=== PATIENT | male | born 1950 | race Caucasian/White ===

== ENCOUNTER 2023-03-29 09:48 | Inpatient (IN) | payer MEDICARE, BC ==
[2023-03-29] VITALS (15 sets, daily range): BP systolic 92–157; BP diastolic 51–98
[~2023-03-29] VITALS: Ht 185.4 cm; Wt 133.2 kg
[2023-03-29] MEDS ORDERED: XARELTO20 MG PO (10:30)
[2023-03-29] MEDS ORDERED: IPRATROPIUM-Albuterol 0.5MG-2.5MG/3 ML NEB ONE (11:05)
[2023-03-29] MEDS ORDERED: methylPREDNISolone SODIUM SUCC 125 MG/2 ML SDV IV ONE (11:10)
[2023-03-29 11:35] LABS: BASO% 0.3 % (0-3); EOS% 0.1 % (0-8); HEMATOCRIT 45.5 % (39.0-50.0); HEMOGLOBIN 14.2 g/dl (14.0-18.0); IMMATURE GRANULOCYTES 0.3 % (0.0-5.0); LYMPH% 3.2 % (15-41); MEAN CELL VOLUME 86.3 fL CALC (80.0-100.0); MEAN CORPUSCULAR HGB 26.9 pG CALC (26.0-32.0); MEAN CORPUSCULAR HGB CONC 31.2 g/dL CAL (32.0-36.0); MONO% 5.8 % (2-13); NEUT# 16.02 thou/uL (1.82-7.42); NEUT% 90.3 % (42-76); RED BLOOD COUNT 5.27 mill/uL (4.70-6.10); RED CELL DISTRI WIDTH 17.1 % (11.5-15.5)
[2023-03-29 11:54] LABS: INTERNATIONAL NORMALIZED RATIO 1.5 RATIO (0.7-1.3); PROTHROMBIN TIME 13.8 SECONDS (9.0-12.5)
[2023-03-29 11:59] LABS: ALBUMIN 4.4 g/dL (3.2-5.0); ALKALINE PHOSPHATASE 83 u/l (38-126); ANION GAP 12 (6-22 (CALC)); BILIRUBIN, TOTAL 1.7 mg/dL (0.2-1.3); BUN 15 mg/dL (8-23); BUN/CREATININE RATIO 13 (12-20 (CALC)); CARBON DIOXIDE 27 mmol/l (22-30); CHLORIDE 104 mmol/l (95-108); CREATININE 1.1 mg/dL (0.7-1.3); GFR FOR AFR.AMER. > 60 ML/MIN (>=60 (CALC)); GFR OTHER RACES > 60 ML/MIN (>=60 (CALC)); POTASSIUM 5.1 mmol/l (3.5-5.1); SGOT/AST 28 u/l (19-48); SODIUM 138 mmol/l (137-146); TOTAL PROTEIN 7.4 g/dL (6.3-8.2)
[2023-03-29] MEDS ORDERED: ACETAMINOPHEN 325 MG/TAB PO ONE (12:05)
[2023-03-29] MEDS ORDERED: ACETAMINOPHEN 325 MG/TAB PO PRN (13:55)
[2023-03-29] MEDS ORDERED: MAGNESIUM HYDROXIDE 30 ML UDC PO PRN (13:55)
[2023-03-29] MEDS ORDERED: IPRATROPIUM-Albuterol 0.5MG-2.5MG/3 ML NEB PRN (14:00)
[2023-03-29] MEDS ORDERED: FUROSEMIDE 40 MG/4 ML SDV IV SCH (15:30)
[2023-03-29] MEDS ORDERED: RIVAROXABAN 10 MG TAB PO SCH (17:30)
[2023-03-29] MEDS ORDERED: LIPITOR80 M1 PO (20:28)
[2023-03-29] MEDS ORDERED: DILTIAZEM HYDR300 MG PO (20:30)
[2023-03-29] MEDS ORDERED: TOPROL XL200 M1 PO (20:31)
[2023-03-29] MEDS ORDERED: DESYREL50 MG PO (20:32)
[2023-03-29] MEDS ORDERED: EZETIMIBE10 MG PO (20:33)
[2023-03-29] MEDS ORDERED: VENTOLIN HFA108 MCG PO (20:36)
[2023-03-29] MEDS ORDERED: ADVAIR DISK1 INH (20:39)
[2023-03-29] MEDS ORDERED: methylPREDNISolone Sod Succ 40 MG/ML SDV IV SCH (21:00)
[2023-03-29] MEDS ORDERED: DILTIAZEM PO SCH (22:27)
[2023-03-29] MEDS ORDERED: METOPROLOL SUCCINATE 100 MG/TAB PO SCH (22:27)
[2023-03-29] MEDS ORDERED: FLUTICASONE/SALMETEROL 250 MCG/50 MCG PER DOSE INH IN SCH (22:55)
[2023-03-30] MEDS ORDERED: METOPROLOL SUCCINATE 100 MG/TAB PO SCH
[2023-03-30 00:12] VITALS: BP 130/74
[2023-03-30 03:27] VITALS: BP 121/64
[2023-03-30] MEDS ORDERED: FUROSEMIDE 40 MG/4 ML SDV IV SCH ×2 (06:00→22:00)
[2023-03-30 07:15] VITALS: BP 116/66
[2023-03-30 09:54] LABS: BASO% 0.1 % (0-3); HEMATOCRIT 44.8 % (39.0-50.0); HEMOGLOBIN 14.3 g/dl (14.0-18.0); IMMATURE GRANULOCYTES 0.2 % (0.0-5.0); LYMPH% 3.5 % (15-41); MEAN CELL VOLUME 85.2 fL CALC (80.0-100.0); MEAN CORPUSCULAR HGB 27.2 pG CALC (26.0-32.0); MEAN CORPUSCULAR HGB CONC 31.9 g/dL CAL (32.0-36.0); MONO% 3.9 % (2-13); NEUT# 16.41 thou/uL (1.82-7.42); NEUT% 92.3 % (42-76); RED BLOOD COUNT 5.26 mill/uL (4.70-6.10); RED CELL DISTRI WIDTH 17.3 % (11.5-15.5)
[2023-03-30 10:10] LABS: ALBUMIN 4.3 g/dL (3.2-5.0); ALKALINE PHOSPHATASE 63 u/l (38-126); ANION GAP 16 (6-22 (CALC)); BILIRUBIN, TOTAL 1.4 mg/dL (0.2-1.3); BUN 29 mg/dL (8-23); BUN/CREATININE RATIO 23 (12-20 (CALC)); CARBON DIOXIDE 25 mmol/l (22-30); CHLORIDE 101 mmol/l (95-108); CREATININE 1.3 mg/dL (0.7-1.3); GFR FOR AFR.AMER. > 60 ML/MIN (>=60 (CALC)); GFR OTHER RACES 54 ML/MIN (>=60 (CALC)); MAGNESIUM 1.8 mg/dL (1.6-2.3); POTASSIUM 4.5 mmol/l (3.5-5.1); SGOT/AST 31 u/l (19-48); SODIUM 138 mmol/l (137-146); TOTAL PROTEIN 7.2 g/dL (6.3-8.2)
[2023-03-30 11:00] VITALS: BP 115/67
[2023-03-30 15:15] VITALS: BP 113/66
[2023-03-30] MEDS ORDERED: DIGOXIN 0.5 MG/2 ML AMP IV ONE (17:40)
[2023-03-30 20:11] VITALS: BP 137/73
[2023-03-30] MEDS ORDERED: ATORVASTATIN CALCIUM 40 MG/TAB PO SCH (21:00)
[2023-03-30] MEDS ORDERED: traZODone HCL 50 MG/TAB PO SCH ×2 (21:00)
[2023-03-31 00:23] VITALS: BP 129/76
[2023-03-31] MEDS ORDERED: METOPROLOL TARTRATE 5 MG/5 ML VIAL IV SCH (03:35)
[2023-03-31 04:42] LABS: BASO% 0.1 % (0-3); HEMATOCRIT 47.1 % (39.0-50.0); HEMOGLOBIN 15.1 g/dl (14.0-18.0); IMMATURE GRANULOCYTES 0.2 % (0.0-5.0); LYMPH% 4.7 % (15-41); MEAN CELL VOLUME 84.7 fL CALC (80.0-100.0); MEAN CORPUSCULAR HGB 27.2 pG CALC (26.0-32.0); MEAN CORPUSCULAR HGB CONC 32.1 g/dL CAL (32.0-36.0); MONO% 4.3 % (2-13); NEUT# 15.34 thou/uL (1.82-7.42); NEUT% 90.7 % (42-76); RED BLOOD COUNT 5.56 mill/uL (4.70-6.10); RED CELL DISTRI WIDTH 17.3 % (11.5-15.5)
[2023-03-31 04:49] VITALS: BP 130/67
[2023-03-31 04:53] LABS: ALBUMIN 4.3 g/dL (3.2-5.0); ALKALINE PHOSPHATASE 70 u/l (38-126); ANION GAP 15 (6-22 (CALC)); BILIRUBIN, TOTAL 1.2 mg/dL (0.2-1.3); BUN 40 mg/dL (8-23); BUN/CREATININE RATIO 34 (12-20 (CALC)); CARBON DIOXIDE 26 mmol/l (22-30); CHLORIDE 101 mmol/l (95-108); CREATININE 1.2 mg/dL (0.7-1.3); GFR FOR AFR.AMER. > 60 ML/MIN (>=60 (CALC)); GFR OTHER RACES 60 ML/MIN (>=60 (CALC)); MAGNESIUM 1.9 mg/dL (1.6-2.3); POTASSIUM 4.2 mmol/l (3.5-5.1); SGOT/AST 31 u/l (19-48); SODIUM 138 mmol/l (137-146); TOTAL PROTEIN 7.5 g/dL (6.3-8.2)
[2023-03-31 07:25] VITALS: BP 175/66
[2023-03-31] MEDS ORDERED: METOPROLOL SUCCINATE 100 MG/TAB PO SCH (09:00)
[2023-03-31] MEDS ORDERED: DILTIAZEM PO SCH (09:00)
[2023-03-31] MEDS ORDERED: DIGOXIN 0.125 MG/TAB PO SCH (09:00)
[2023-03-31 09:03] VITALS: BP 124/58
[2023-03-31 10:01] VITALS: BP 116/66
[2023-03-31] MEDS ORDERED: FUROSEMIDE 40 MG/4 ML SDV IV SCH (14:00)
[2023-03-31 19:00] VITALS: BP 122/73
[2023-04-01 00:10] VITALS: BP 133/79
[2023-04-01 03:53] VITALS: BP 130/80
[2023-04-01 05:35] LABS: BASO% 0.1 % (0-3); HEMATOCRIT 48.7 % (39.0-50.0); HEMOGLOBIN 15.7 g/dl (14.0-18.0); IMMATURE GRANULOCYTES 0.3 % (0.0-5.0); LYMPH% 5.4 % (15-41); MEAN CORPUSCULAR HGB 27.4 pG CALC (26.0-32.0); MEAN CORPUSCULAR HGB CONC 32.2 g/dL CAL (32.0-36.0); MONO% 3.9 % (2-13); NEUT# 11.61 thou/uL (1.82-7.42); NEUT% 90.3 % (42-76); RED BLOOD COUNT 5.73 mill/uL (4.70-6.10); RED CELL DISTRI WIDTH 17.2 % (11.5-15.5)
[2023-04-01 05:45] LABS: ALBUMIN 4.3 g/dL (3.2-5.0); ALKALINE PHOSPHATASE 73 u/l (38-126); ANION GAP 14 (6-22 (CALC)); BILIRUBIN, TOTAL 0.9 mg/dL (0.2-1.3); BUN 47 mg/dL (8-23); BUN/CREATININE RATIO 39 (12-20 (CALC)); CARBON DIOXIDE 29 mmol/l (22-30); CHLORIDE 100 mmol/l (95-108); CREATININE 1.2 mg/dL (0.7-1.3); GFR FOR AFR.AMER. > 60 ML/MIN (>=60 (CALC)); GFR OTHER RACES 60 ML/MIN (>=60 (CALC)); MAGNESIUM 2.1 mg/dL (1.6-2.3); SGOT/AST 44 u/l (19-48); SODIUM 138 mmol/l (137-146); TOTAL PROTEIN 7.5 g/dL (6.3-8.2)
[2023-04-01 07:14] VITALS: BP 131/76
[2023-04-01] MEDS ORDERED: LEVALBUTEROL HCL 1.25 MG/3 ML VIAL NEB PRN (09:45)
[2023-04-01] MEDS ORDERED: IPRATROPIUM BROMIDE 0.5 MG/2.5 ML SOL IN PRN (09:45)
[2023-04-01 10:51] VITALS: BP 140/84
[2023-04-01] MEDS ORDERED: DIGOXIN 0.25 MG/TAB PO SCH (13:30)
[2023-04-01 13:34] VITALS: BP 126/77
[2023-04-01] MEDS ORDERED: KEFLEX500 MG PO (13:47)
[2023-04-01 14:48] VITALS: BP 129/74
[2023-04-03] MEDS ORDERED: LASIX 40 MG TAB40 MG PO (11:25)
== END 2023-04-01 15:15 | disposition home or self-care (01) | DRG 291 ==
LOC: ED 09:48 → ED-I 12:45 → ED 17:26 → MS2 17:27
PROVIDERS: Emergency Medicine; Nurse Practitioner Family; ADMIT Student in an Organized Health Care Education/Training Program; ATTEND Student in an Organized Health Care Education/Training Program
DX: I11.0 Hypertensive heart disease with heart failure (principal); I50.33 Acute on chronic diastolic (congestive) heart failure; J96.01 Acute respiratory failure with hypoxia; J44.1 Chronic obstructive pulmonary disease with (acute) exacerbation; D68.51 Activated protein C resistance; L03.115 Cellulitis of right lower limb; I48.11 Longstanding persistent atrial fibrillation; E78.5 Hyperlipidemia, unspecified; G47.33 Obstructive sleep apnea (adult) (pediatric); Z79.01 Long term (current) use of anticoagulants; Z86.718 Personal history of other venous thrombosis and embolism; Z86.711 Personal history of pulmonary embolism; Z95.810 Presence of automatic (implantable) cardiac defibrillator; Z87.891 Personal history of nicotine dependence; Z20.822 Contact with and (suspected) exposure to COVID-19
CPT/HCPCS: J0690; J1160

== ENCOUNTER 2024-04-26 09:58 | Emergency (ER) | payer MEDICARE, BC ==
[~2024-04-26] VITALS: Ht 185.4 cm; Wt 134.1 kg
[~2024-04-26 09:58] MED LIST: ADVAIR DISK1 INH; DESYREL50 MG PO; DILTIAZEM HYDR300 MG PO; EZETIMIBE10 MG PO; KEFLEX500 MG PO; LASIX 40 MG TAB40 MG PO; LIPITOR80 M1 PO; TOPROL XL200 M1 PO; VENTOLIN HFA108 MCG PO; XARELTO20 MG PO
[2024-04-26 10:04] VITALS: BP 118/73
[2024-04-26 10:15] VITALS: BP 100/72
[2024-04-26 10:25] VITALS: BP 118/73
== END 2024-04-26 10:32 | disposition home or self-care (01) ==
LOC: ED 09:58
DX: S51.812A Laceration without foreign body of left forearm, initial encounter (principal); I48.91 Unspecified atrial fibrillation; W22.8XXA Striking against or struck by other objects, initial encounter; Y92.029 Unspecified place in mobile home as the place of occurrence of the external cause; Z79.01 Long term (current) use of anticoagulants; Z95.810 Presence of automatic (implantable) cardiac defibrillator; Z86.718 Personal history of other venous thrombosis and embolism; Z87.891 Personal history of nicotine dependence